=== PATIENT | female | born 1950 | race Caucasian/White ===

== ENCOUNTER 2024-03-22 19:27 | Inpatient (IN) ==
[2024-03-22] MEDS ORDERED: Magnesium Hydroxide LIQ 30 ML UDC PO PRN (21:33)
[2024-03-22] MEDS ORDERED: Polyethylene Glycol 3350 17 GM PACKET PO PRN (21:33)
[2024-03-22] MEDS ORDERED: Albuterol HFA INHALER 8 gm MDI INH PRN (21:55)
[2024-03-22] MEDS: cefTRIAXone 1 gm/50 mL D5W 1 GM/50 ML BAG IV SCH (22:26)
[2024-03-22] MEDS: Enoxaparin 40 MG/0.4 ML SYR SUBCUT SCH (22:27)
[2024-03-22] MEDS: Albuterol/Ipratropium NEB.SOL (2.5/0.5 MG) 3 ML NEB.SOLN INH SCH (23:13)
[2024-03-22] MEDS: DOXYcycline 100 MG in NS 0.9% 250 ml 250 ML IVPB SCH (23:26)
[2024-03-22] MEDS ORDERED: Bacitracin OINTMENT TUBE ONE (23:41)
[2024-03-23] MEDS: Mometasone/Formoter 200/5 MDI INH SCH (07:37)
[2024-03-23 08:11] LABS: ABS Lymphocytes 0.6 10^3/uL (1.0-4.8); ABS Monocytes 0.3 10^3/uL (0.0-0.9); ABS Neutrophils 7.5 10^3/uL (1.5-7.6); Hematocrit 35.9 % (35-45); Hemoglobin 12.1 g/dL (11.5-14.3); Lymphocyte % 6.6 %; Mean Corpuscular Hemoglobin 30.8 pg (27-33); Mean Corpuscular Hgb Conc 33.6 g/dL (31-36); Mean Corpuscular Volume 91.6 fL (80-97); Mean Platelet Volume 8.3 fL (7.5-11.2); Platelet Count 289 10^3/uL (150-450); Red Blood Count 3.92 10^6/uL (3.63-4.92); Red Cell Distribution Width 14.5 % (12-17); White Blood Count 8.4 10^3/uL (3.8-11.8)
[2024-03-23 08:45] LABS: Calcium 8.3 mg/dL (8.6-10.3); Creatinine, Serum 0.67 mg/dL (0.51-0.95); Potassium 4.1 mmol/L (3.5-5.0); eGFR CKD-EPI 91.1 (>60)
[2024-03-23] MEDS: Furosemide 20 mg/2 ml IV VIAL IV SLOW PU ONE ×2 (11:02→16:51)
[2024-03-23] MEDS: Cefepime 1 GM in Dextrose 1 GM/50 ML BAG IV SCH (14:12)
[2024-03-23] MEDS: metroNIDAZOLE IV 500 MG/100ML 500 MG/100 ML BAG IVPB SCH ×2 (14:42→22:00)
[2024-03-23 15:41] LABS: High Sensitivity Troponin 1 Hr 247 pg/mL (<15)
[2024-03-23] MEDS: Metoprolol Tartrate 5 mg VIAL 5 ml VIAL (1 mg/ml) IV SCH (16:55)
[2024-03-24] MEDS: DOXYcycline 100 MG in NS 0.9% 250 ml 250 ML IVPB SCH (00:07)
[2024-03-24] MEDS: Cefepime 1 GM in Dextrose 1 GM/50 ML BAG IV SCH (01:25)
[2024-03-24 06:30] LABS: ABS Lymphocytes 1.2 10^3/uL (1.0-4.8); ABS Monocytes 0.9 10^3/uL (0.0-0.9); ABS Neutrophils 7.2 10^3/uL (1.5-7.6); Eosinophil % 0.2 %; Hematocrit 32.1 % (35-45); Mean Corpuscular Hemoglobin 31.1 pg (27-33); Mean Corpuscular Hgb Conc 34.2 g/dL (31-36); Mean Corpuscular Volume 90.9 fL (80-97); Mean Platelet Volume 7.7 fL (7.5-11.2); Platelet Count 325 10^3/uL (150-450); Red Blood Count 3.53 10^6/uL (3.63-4.92); Red Cell Distribution Width 14.3 % (12-17); White Blood Count 9.3 10^3/uL (3.8-11.8)
[2024-03-24 07:25] LABS: Calcium 7.6 mg/dL (8.6-10.3); Creatinine, Serum 0.79 mg/dL (0.51-0.95); Magnesium 2.1 mg/dL (1.9-2.7); Potassium 3.6 mmol/L (3.5-5.0)
[2024-03-24] MEDS ORDERED: Sulfur Hexaflouride MICROSPHR 25 MG VIAL ONE (12:11)
[2024-03-24] MEDS: Sulfur Hexaflouride MICROSPHR 25 MG VIAL IV ONE (12:44)
[2024-03-24] MEDS ORDERED: Lorazepam PYXIS KEY PRN (23:34)
[2024-03-25] MEDS: diazePAM INJ CARPUJECT 5 MG/ML SYRINGE IV ONE ×2 (00:01→23:02)
[2024-03-25] MEDS: LORazepam 2 mg VIAL 1 ml IV PUSH ONE (00:19)
[2024-03-25 05:26] LABS: Hematocrit 33.3 % (35-45); Hemoglobin 11.4 g/dL (11.5-14.3); Mean Corpuscular Hgb Conc 34.2 g/dL (31-36); Mean Corpuscular Volume 90.7 fL (80-97); Mean Platelet Volume 7.7 fL (7.5-11.2); Platelet Count 326 10^3/uL (150-450); Red Blood Count 3.67 10^6/uL (3.63-4.92); White Blood Count 9.1 10^3/uL (3.8-11.8)
[2024-03-25 05:44] LABS: Calcium 7.3 mg/dL (8.6-10.3); Creatinine, Serum 0.66 mg/dL (0.51-0.95); Magnesium 1.9 mg/dL (1.9-2.7); eGFR CKD-EPI 91.4 (>60)
[2024-03-25 06:01] LABS: ABS Eosinophils 0.1 10^3/uL (0.0-0.5); ABS Lymphocytes 1.2 10^3/uL (1.0-4.8); ABS Monocytes 0.8 10^3/uL (0.0-0.9); ABS Nucleated RBC 0.01 10^3/ul; Eosinophil % 0.6 %; Lymphocyte % 13.7 %; Nucleated Red Blood Cells % 0.1 %/100WBC (0.0-0.8)
[2024-03-25 06:02] LABS: RBC Morphology Normal (Normal)
[2024-03-25] MEDS: Enoxaparin 60 MG/0.6 ML SYR SUBCUT SCH (07:26)
[2024-03-25 07:47] LABS: Ferritin 102.3 ng/mL (11-307)
[2024-03-25] MEDS: KCL 20 MEQ/100 ML IVPREMIX 20 MEQ/100 ML BAG IV SCH ×2 (08:18→23:14)
[2024-03-25] MEDS: Pantoprazole VIAL 40 MG VIAL IV SCH (11:14)
[2024-03-25] MEDS: Furosemide 20 mg/2 ml IV VIAL IV SLOW PU ONE (11:14)
[2024-03-25] MEDS: Ferric Gluconate IV 250 MG in NS 0.9% 250 ml 200 ML IVPB SCH (11:24)
[2024-03-25] MEDS: OLANZAPINE 10 MG IM ONE (12:28)
[2024-03-25] MEDS ORDERED: Levalbuterol 1.25MG/0.5ML NEB.SOL ONE (15:18)
[2024-03-25] MEDS ORDERED: Albuterol/Ipratropium NEB.SOL (2.5/0.5 MG) 3 ML NEB.SOLN ONE (15:22)
[2024-03-25] MEDS: Albuterol/Ipratropium NEB.SOL (2.5/0.5 MG) 3 ML NEB.SOLN INH PRN (15:23)
[2024-03-25] MEDS ORDERED: Propofol 10 MG/ML 20 ML BTL ONE (16:02)
[2024-03-25] MEDS: Levalbuterol 1.25 mg/3 mL (NF) 1.25 MG/3 ML NEB.SOLN INH ONE (16:31)
[2024-03-25] MEDS: Albuterol 2.5mg/3 ml (0.083%) NEB.SOLN INH ONE (16:31)
[2024-03-25] MEDS: CEFEPIME 2 GM in Dextrose 50 mL IV SCH ×2 (18:04→18:22)
[2024-03-25] MEDS: metroNIDAZOLE IV 500 MG/100ML 500 MG/100 ML BAG IVPB SCH (20:08)
[2024-03-26 06:07] LABS: Hematocrit 33.6 % (35-45); Hemoglobin 11.3 g/dL (11.5-14.3); Mean Corpuscular Hemoglobin 30.6 pg (27-33); Mean Corpuscular Hgb Conc 33.6 g/dL (31-36); Mean Corpuscular Volume 91.2 fL (80-97); Mean Platelet Volume 7.3 fL (7.5-11.2); Platelet Count 397 10^3/uL (150-450); Red Blood Count 3.68 10^6/uL (3.63-4.92); Red Cell Distribution Width 14.4 % (12-17); White Blood Count 11.1 10^3/uL (3.8-11.8)
[2024-03-26 06:22] LABS: Calcium 7.2 mg/dL (8.6-10.3); Creatinine, Serum 0.67 mg/dL (0.51-0.95); Magnesium 1.8 mg/dL (1.9-2.7); Potassium 5.2 mmol/L (3.5-5.0); eGFR CKD-EPI 91.1 (>60)
[2024-03-26 07:07] LABS: ABS Eosinophils 0.5 10^3/uL (0.0-0.5); ABS Lymphocytes 1.3 10^3/uL (1.0-4.8); ABS Monocytes 0.9 10^3/uL (0.0-0.9); ABS Neutrophils 8.3 10^3/uL (1.5-7.6); ABS Nucleated RBC 0.01 10^3/ul; Eosinophil % 4.9 %; Lymphocyte % 11.4 %; RBC Morphology Normal (Normal)
[2024-03-26] MEDS ORDERED: Heparin 5000 UNITS/ML 1 mL VIAL IV SCH (15:00)
[2024-03-26 15:16] LABS: Hematocrit 37.4 % (35-45); Hemoglobin 12.1 g/dL (11.5-14.3); Mean Corpuscular Hemoglobin 29.4 pg (27-33); Mean Corpuscular Hgb Conc 32.2 g/dL (31-36); Mean Corpuscular Volume 91.2 fL (80-97); Mean Platelet Volume 7.2 fL (7.5-11.2); Platelet Count 407 10^3/uL (150-450); Red Cell Distribution Width 14.5 % (12-17); White Blood Count 12.1 10^3/uL (3.8-11.8)
[2024-03-26 15:28] LABS: ABS Eosinophils 0.5 10^3/uL (0.0-0.5); ABS Lymphocytes 1.4 10^3/uL (1.0-4.8); ABS Monocytes 0.9 10^3/uL (0.0-0.9); ABS Neutrophils 9.3 10^3/uL (1.5-7.6); ABS Nucleated RBC 0.01 10^3/ul; Eosinophil % 4.4 %; Lymphocyte % 11.2 %; Nucleated Red Blood Cells % 0.1 %/100WBC (0.0-0.8)
[2024-03-26 16:02] LABS: Creatinine, Serum 0.61 mg/dL (0.51-0.95); eGFR CKD-EPI 93.2 (>60)
[2024-03-26] MEDS: Heparin DRIP 25,000 UNITS BAG 25,000 UNITS/250 ML BAG IV SCH (17:46)
[2024-03-27 06:54] LABS: Creatinine, Serum 0.66 mg/dL (0.51-0.95); Magnesium 1.8 mg/dL (1.9-2.7); Potassium 3.7 mmol/L (3.5-5.0); eGFR CKD-EPI 91.4 (>60)
[2024-03-27 07:20] LABS: ABS Basophils 0.1 10^3/uL (0.0-0.1); ABS Eosinophils 0.7 10^3/uL (0.0-0.5); ABS Lymphocytes 1.5 10^3/uL (1.0-4.8); ABS Monocytes 1.1 10^3/uL (0.0-0.9); ABS Neutrophils 10.4 10^3/uL (1.5-7.6); ABS Nucleated RBC 0.05 10^3/ul; Eosinophil % 5.1 %; Hematocrit 35.5 % (35-45); Hemoglobin 12.1 g/dL (11.5-14.3); Lymphocyte % 10.7 %; Mean Corpuscular Hemoglobin 30.9 pg (27-33); Mean Corpuscular Hgb Conc 34.1 g/dL (31-36); Mean Corpuscular Volume 90.6 fL (80-97); Mean Platelet Volume 7.6 fL (7.5-11.2); Nucleated Red Blood Cells % 0.4 %/100WBC (0.0-0.8); Platelet Count 431 10^3/uL (150-450); Red Blood Count 3.92 10^6/uL (3.63-4.92); Red Cell Distribution Width 14.5 % (12-17); White Blood Count 13.2 10^3/uL (3.8-11.8)
[2024-03-27 08:33] LABS: RBC Morphology Normal (Normal)
[2024-03-27] MEDS: Potassium Chlor 10 meq TAB PO ONE (09:49)
[2024-03-27] MEDS: Lactated Ringers 1000 ml BAG 1,000 ML IV ONE (14:35)
[2024-03-27] MEDS: NS 0.9% 500 ml BAG 500 ML IV ONE (15:10)
[2024-03-27 15:24] LABS: Hemoglobin 13.4 g/dL (11.5-14.3); Mean Corpuscular Hemoglobin 29.6 pg (27-33); Mean Corpuscular Hgb Conc 32.6 g/dL (31-36); Mean Corpuscular Volume 90.6 fL (80-97); Platelet Count 436 10^3/uL (150-450); Red Blood Count 4.52 10^6/uL (3.63-4.92); Red Cell Distribution Width 14.7 % (12-17)
[2024-03-27] MEDS: Ondansetron 4 mg VIAL 2 MG/ML 2 ml VIAL IV ONE (15:24)
[2024-03-27] MEDS ORDERED: Vancomycin per Pharmacy 1 EA NOTE FOLLOW UP PRN (16:10)
[2024-03-27 16:19] LABS: C Reactive Protein 86.54 mg/L (<8.01)
[2024-03-27 16:22] LABS: ABS Eosinophils 0.6 10^3/uL (0.0-0.5); ABS Lymphocytes 1.6 10^3/uL (1.0-4.8); ABS Monocytes 0.9 10^3/uL (0.0-0.9); ABS Neutrophils 12.9 10^3/uL (1.5-7.6); ABS Nucleated RBC 0.03 10^3/ul; Eosinophil % 3.9 %; Nucleated Red Blood Cells % 0.2 %/100WBC (0.0-0.8); RBC Morphology Normal (Normal)
[2024-03-27] MEDS: Vancomycin 1,000 MG in NS 0.9% 250 ml 250 ML IVPB ONE (16:49)
[2024-03-27] MEDS ORDERED: Heparin 5000 UNITS/ML 1 mL VIAL IV SCH (17:00)
[2024-03-27 18:01] LABS: Hematocrit 39.8 % (35-45); Hemoglobin 12.8 g/dL (11.5-14.3); Mean Corpuscular Hemoglobin 29.3 pg (27-33); Mean Corpuscular Hgb Conc 32.2 g/dL (31-36); Mean Corpuscular Volume 91.1 fL (80-97); Mean Platelet Volume 7.1 fL (7.5-11.2); Platelet Count 434 10^3/uL (150-450); Red Blood Count 4.37 10^6/uL (3.63-4.92); Red Cell Distribution Width 14.3 % (12-17); White Blood Count 20.7 10^3/uL (3.8-11.8)
[2024-03-27 18:34] LABS: Creatinine, Serum 0.64 mg/dL (0.51-0.95); eGFR CKD-EPI 92.1 (>60)
[2024-03-27] MEDS: Heparin DRIP 25,000 UNITS BAG 25,000 UNITS/250 ML BAG IV SCH (19:00)
[2024-03-27 19:39] LABS: ABS Eosinophils 0.3 10^3/uL (0.0-0.5); ABS Lymphocytes 1.1 10^3/uL (1.0-4.8); ABS Monocytes 1.8 10^3/uL (0.0-0.9); ABS Neutrophils 17.5 10^3/uL (1.5-7.6); ABS Nucleated RBC 0.02 10^3/ul; Eosinophil % 1.4 %; Lymphocyte % 5.5 %; Nucleated Red Blood Cells % 0.1 %/100WBC (0.0-0.8)
[2024-03-27 22:01] LABS: Urine Appearance Turbid; Urine Bilirubin Negative (Negative); Urine Blood Negative (Negative); Urine Color Yellow; Urine Glucose Negative (Negative); Urine Ketones 1+ (Negative); Urine Nitrite Negative (Negative); Urine Protein Trace (Negative); Urine Specific Gravity 1.013 (1.002-1.030); Urine Urobilinogen Negative (Negative)
[2024-03-27] MEDS: guaiFENesin 100 mg/5 ml LIQ unit dose cup PO PRN (22:14)
[2024-03-27] MEDS: metroNIDAZOLE IV 500 MG/100ML 500 MG/100 ML BAG IVPB SCH (22:15)
[2024-03-27] MEDS: Magnesium Sulfate 2 gm BAG 2 GM/50 ML BAG IVPB ONE (23:31)
[2024-03-28 04:18] LABS: Hematocrit 31.5 % (35-45); Hemoglobin 10.7 g/dL (11.5-14.3); Mean Corpuscular Hemoglobin 30.5 pg (27-33); Mean Corpuscular Volume 89.8 fL (80-97); Mean Platelet Volume 7.2 fL (7.5-11.2); Platelet Count 374 10^3/uL (150-450); Red Blood Count 3.51 10^6/uL (3.63-4.92); Red Cell Distribution Width 14.5 % (12-17); White Blood Count 14.6 10^3/uL (3.8-11.8)
[2024-03-28 04:52] LABS: Calcium 6.8 mg/dL (8.6-10.3); Creatinine, Serum 0.73 mg/dL (0.51-0.95); Magnesium 2.5 mg/dL (1.9-2.7); Potassium 2.9 mmol/L (3.5-5.0); eGFR CKD-EPI 85.7 (>60)
[2024-03-28 05:52] LABS: ABS Basophils 0.1 10^3/uL (0.0-0.1); ABS Eosinophils 0.4 10^3/uL (0.0-0.5); ABS Lymphocytes 1.5 10^3/uL (1.0-4.8); ABS Monocytes 1.3 10^3/uL (0.0-0.9); ABS Neutrophils 11.4 10^3/uL (1.5-7.6); ABS Nucleated RBC 0.02 10^3/ul; Eosinophil % 2.7 %; Lymphocyte % 10.4 %; Nucleated Red Blood Cells % 0.1 %/100WBC (0.0-0.8)
[2024-03-28] MEDS: KCL 20 MEQ/100 ML IVPREMIX 20 MEQ/100 ML BAG IV SCH (06:01)
[2024-03-28] MEDS: Potassium Chloride LIQUID 20 MEQ/15 ML LIQUID PO SCH (06:32)
[2024-03-28] MEDS: Vancomycin 750 MG in NS 0.9% 250 ML IVPB SCH (08:32)
[2024-03-28 10:44] LABS: Calcium 6.6 mg/dL (8.6-10.3); Creatinine, Serum 0.73 mg/dL (0.51-0.95); eGFR CKD-EPI 85.7 (>60)
[2024-03-28] MEDS ORDERED: VERAPAMIL 2.5 MG/ML 2 ML VIAL ** 5 mg/2 ml ONE (13:21)
[2024-03-28] MEDS ORDERED: Heparin 1,000 UNIT/ML 10 ml (10,000 UNITS) CATHLAB/DIALYSIS ONE (13:21)
[2024-03-28] MEDS ORDERED: Iohexol 350 (CONTRAST) 100 ML PAK IV ONE (13:22)
[2024-03-28] MEDS ORDERED: Heparin 2 UNITS/ML 1000 mls 2,000 ML IV ONE (13:22)
[2024-03-28] MEDS ORDERED: Lidocaine 1% MPF 5 ML VIAL ONE (13:22)
[2024-03-28] MEDS ORDERED: nitroGLYCERIN DRIP 25,000 MCG/250 ML BTL ONE (13:22)
[2024-03-28] MEDS ORDERED: Midazolam 5 mg/5 ml VIAL 1 mg/ml 5 ml VIAL (5 mg) ONE (13:23)
[2024-03-28] MEDS ORDERED: fentaNYL 100 mcg/2 ml 50 MCG/ML VIAL ONE (13:23)
[2024-03-28] MEDS: NS 0.9% 1000 ml BAG 1,000 ML IV SCH (17:26)
[2024-03-28] MEDS: cefTRIAXone 1 gm/50 mL D5W 1 GM/50 ML BAG IV SCH (18:45)
[2024-03-28] MEDS: Azithromycin 500 mg/250 ml NS 500 MG/250 ML BAG IVPB SCH (18:56)
[2024-03-28] MEDS: Naloxone Nasal Spray 4 MG/0.1 ML NASAL.SPR INTRANASAL ONE ×2 (22:43→23:39)
[2024-03-29] MEDS ORDERED: Vancomycin Trough Check NOTE FOLLOW UP ONE (05:30)
[2024-03-29 05:50] LABS: Hematocrit 30.3 % (35-45); Hemoglobin 10.3 g/dL (11.5-14.3); Mean Corpuscular Hemoglobin 30.7 pg (27-33); Mean Corpuscular Volume 90.4 fL (80-97); Mean Platelet Volume 7.3 fL (7.5-11.2); Platelet Count 348 10^3/uL (150-450); Red Blood Count 3.35 10^6/uL (3.63-4.92); Red Cell Distribution Width 14.9 % (12-17)
[2024-03-29 06:27] LABS: Calcium 7.3 mg/dL (8.6-10.3); Creatinine, Serum 0.65 mg/dL (0.51-0.95); Magnesium 2.5 mg/dL (1.9-2.7); Potassium 3.6 mmol/L (3.5-5.0); eGFR CKD-EPI 91.8 (>60)
[2024-03-29 07:16] LABS: ABS Basophils 0.1 10^3/uL (0.0-0.1); ABS Eosinophils 0.3 10^3/uL (0.0-0.5); ABS Lymphocytes 1.1 10^3/uL (1.0-4.8); ABS Monocytes 1.3 10^3/uL (0.0-0.9); ABS Neutrophils 12.2 10^3/uL (1.5-7.6); ABS Nucleated RBC 0.01 10^3/ul; Eosinophil % 2.1 %; Lymphocyte % 7.3 %; Nucleated Red Blood Cells % 0.1 %/100WBC (0.0-0.8)
[2024-03-29 09:53] LABS: C Reactive Protein 65.99 mg/L (<8.01)
[2024-03-29] MEDS: Potassium Chlor 20 meq TAB.ER PO ONE (10:23)
[2024-03-29] MEDS: Iohexol 350 (CONTRAST) 500 ML MDV IV ONE (11:11)
[2024-03-29] MEDS: Enoxaparin 40 MG/0.4 ML SYR SUBCUT SCH (13:57)
[2024-03-30] MEDS: guaiFENesin/CODIENE 100mg/10mg 5 ML UDC PO PRN (06:02)
[2024-03-30 07:56] LABS: ABS Basophils 0.2 10^3/uL (0.0-0.1); ABS Eosinophils 0.3 10^3/uL (0.0-0.5); ABS Neutrophils 9.4 10^3/uL (1.5-7.6); ABS Nucleated RBC 0.01 10^3/ul; Eosinophil % 2.5 %; Hematocrit 31.3 % (35-45); Hemoglobin 10.7 g/dL (11.5-14.3); Lymphocyte % 8.8 %; Mean Corpuscular Hemoglobin 31.2 pg (27-33); Mean Corpuscular Hgb Conc 34.1 g/dL (31-36); Mean Corpuscular Volume 91.3 fL (80-97); Mean Platelet Volume 7.1 fL (7.5-11.2); Nucleated Red Blood Cells % 0.1 %/100WBC (0.0-0.8); Platelet Count 341 10^3/uL (150-450); Red Blood Count 3.42 10^6/uL (3.63-4.92); Red Cell Distribution Width 15.2 % (12-17)
[2024-03-30 08:35] LABS: Calcium 7.6 mg/dL (8.6-10.3); Creatinine, Serum 0.57 mg/dL (0.51-0.95); Magnesium 2.2 mg/dL (1.9-2.7); Potassium 3.9 mmol/L (3.5-5.0); eGFR CKD-EPI 94.7 (>60)
[2024-03-31] MEDS: Pantoprazole VIAL 40 MG VIAL IV ONE (02:03)
[2024-03-31 02:04] LABS: Hematocrit 33.4 % (35-45); Hemoglobin 10.7 g/dL (11.5-14.3)
[2024-03-31 05:46] LABS: Hematocrit 29.4 % (35-45); Hemoglobin 9.8 g/dL (11.5-14.3); Mean Corpuscular Hemoglobin 30.4 pg (27-33); Mean Corpuscular Hgb Conc 33.4 g/dL (31-36); Mean Corpuscular Volume 91.1 fL (80-97); Mean Platelet Volume 7.4 fL (7.5-11.2); Platelet Count 333 10^3/uL (150-450); Red Blood Count 3.23 10^6/uL (3.63-4.92); Red Cell Distribution Width 14.9 % (12-17)
[2024-03-31 06:22] LABS: ABS Basophils 0.1 10^3/uL (0.0-0.1); ABS Eosinophils 0.2 10^3/uL (0.0-0.5); ABS Lymphocytes 1.2 10^3/uL (1.0-4.8); ABS Monocytes 0.9 10^3/uL (0.0-0.9); ABS Neutrophils 9.7 10^3/uL (1.5-7.6); ABS Nucleated RBC 0.02 10^3/ul; Eosinophil % 1.3 %; Lymphocyte % 10.2 %; Nucleated Red Blood Cells % 0.1 %/100WBC (0.0-0.8)
[2024-03-31 06:30] LABS: Calcium 7.7 mg/dL (8.6-10.3); Creatinine, Serum 0.51 mg/dL (0.51-0.95); Potassium 3.7 mmol/L (3.5-5.0); eGFR CKD-EPI 97.3 (>60)
[2024-03-31] MEDS: Lactated Ringers 1000 ml BAG 250 ML IV ONE (11:16)
[2024-03-31 14:00] LABS: Hematocrit 29.3 % (35-45); Hemoglobin 9.9 g/dL (11.5-14.3); Mean Corpuscular Hemoglobin 30.7 pg (27-33); Mean Corpuscular Hgb Conc 33.6 g/dL (31-36); Mean Corpuscular Volume 91.3 fL (80-97); Mean Platelet Volume 7.6 fL (7.5-11.2); Platelet Count 326 10^3/uL (150-450); Red Blood Count 3.21 10^6/uL (3.63-4.92); Red Cell Distribution Width 14.8 % (12-17); White Blood Count 27.1 10^3/uL (3.8-11.8)
[2024-03-31 14:46] LABS: Calcium 7.7 mg/dL (8.6-10.3); Creatinine, Serum 0.54 mg/dL (0.51-0.95); Potassium 3.7 mmol/L (3.5-5.0)
[2024-03-31 14:55] LABS: ABS Basophils 0.1 10^3/uL (0.0-0.1); ABS Eosinophils 0.1 10^3/uL (0.0-0.5); ABS Lymphocytes 0.8 10^3/uL (1.0-4.8); ABS Monocytes 1.3 10^3/uL (0.0-0.9); ABS Neutrophils 24.9 10^3/uL (1.5-7.6); ABS Nucleated RBC 0.01 10^3/ul; Eosinophil % 0.2 %; Lymphocyte % 2.9 %; RBC Morphology Normal (Normal)
[2024-03-31 15:44] LABS: C Reactive Protein 32.28 mg/L (<8.01)
[2024-03-31 22:04] LABS: Hematocrit 28.6 % (35-45); Hemoglobin 9.6 g/dL (11.5-14.3); Mean Corpuscular Hemoglobin 30.6 pg (27-33); Mean Corpuscular Hgb Conc 33.4 g/dL (31-36); Mean Corpuscular Volume 91.7 fL (80-97); Mean Platelet Volume 7.3 fL (7.5-11.2); Platelet Count 303 10^3/uL (150-450); Red Blood Count 3.12 10^6/uL (3.63-4.92); Red Cell Distribution Width 14.7 % (12-17); White Blood Count 26.4 10^3/uL (3.8-11.8)
[2024-03-31 22:22] LABS: ABS Lymphocytes 1.1 10^3/uL (1.0-4.8); ABS Monocytes 1.4 10^3/uL (0.0-0.9); ABS Neutrophils 23.8 10^3/uL (1.5-7.6); ABS Nucleated RBC 0.01 10^3/ul; Eosinophil % 0.1 %; Lymphocyte % 4.3 %
[2024-04-01 05:47] LABS: ABS Basophils 0.1 10^3/uL (0.0-0.1); ABS Eosinophils 0.1 10^3/uL (0.0-0.5); ABS Lymphocytes 1.3 10^3/uL (1.0-4.8); ABS Monocytes 1.1 10^3/uL (0.0-0.9); ABS Neutrophils 19.8 10^3/uL (1.5-7.6); ABS Nucleated RBC 0.02 10^3/ul; Eosinophil % 0.2 %; Hematocrit 28.9 % (35-45); Hemoglobin 9.5 g/dL (11.5-14.3); Lymphocyte % 5.6 %; Mean Corpuscular Hemoglobin 30.3 pg (27-33); Mean Corpuscular Hgb Conc 33.1 g/dL (31-36); Mean Corpuscular Volume 91.7 fL (80-97); Mean Platelet Volume 7.5 fL (7.5-11.2); Nucleated Red Blood Cells % 0.1 %/100WBC (0.0-0.8); Platelet Count 304 10^3/uL (150-450); Red Blood Count 3.15 10^6/uL (3.63-4.92); Red Cell Distribution Width 14.9 % (12-17); White Blood Count 22.3 10^3/uL (3.8-11.8)
[2024-04-01 06:05] LABS: Calcium 7.5 mg/dL (8.6-10.3); Creatinine, Serum 0.57 mg/dL (0.51-0.95); eGFR CKD-EPI 94.7 (>60)
[2024-04-01] MEDS ORDERED: Zosyn per Pharmacy NOTE FOLLOW UP SCH (11:00)
[2024-04-01] MEDS: ZOSYN 3.375 GM x ONE DOSE over 30 miuntes IV (12:14)
[2024-04-01] MEDS: ZOSYN 3.375 GM Q8H per EXTENDED INFUSION IV SCH (16:40)
[2024-04-02 06:32] LABS: ABS Basophils 0.1 10^3/uL (0.0-0.1); ABS Eosinophils 0.1 10^3/uL (0.0-0.5); ABS Lymphocytes 1.1 10^3/uL (1.0-4.8); ABS Monocytes 1.2 10^3/uL (0.0-0.9); ABS Neutrophils 10.1 10^3/uL (1.5-7.6); Eosinophil % 1.2 %; Hematocrit 26.1 % (35-45); Hemoglobin 8.8 g/dL (11.5-14.3); Lymphocyte % 8.9 %; Mean Corpuscular Hemoglobin 31.3 pg (27-33); Mean Corpuscular Hgb Conc 33.7 g/dL (31-36); Mean Corpuscular Volume 92.8 fL (80-97); Mean Platelet Volume 7.8 fL (7.5-11.2); Platelet Count 276 10^3/uL (150-450); Red Blood Count 2.81 10^6/uL (3.63-4.92); Red Cell Distribution Width 14.8 % (12-17); White Blood Count 12.7 10^3/uL (3.8-11.8)
[2024-04-02 06:49] LABS: Calcium 7.6 mg/dL (8.6-10.3); Creatinine, Serum 0.58 mg/dL (0.51-0.95); Potassium 3.4 mmol/L (3.5-5.0); eGFR CKD-EPI 94.3 (>60)
[2024-04-02 09:57] LABS: Magnesium 2.2 mg/dL (1.9-2.7)
[2024-04-02] MEDS: Potassium Chlor 20 meq TAB.ER PO SCH (10:19)
[2024-04-02] MEDS: Potassium Chlor 20 meq TAB.ER PO ONE (18:37)
[2024-04-03 06:45] LABS: ABS Eosinophils 0.1 10^3/uL (0.0-0.5); ABS Lymphocytes 1.1 10^3/uL (1.0-4.8); ABS Neutrophils 10.3 10^3/uL (1.5-7.6); ABS Nucleated RBC 0.02 10^3/ul; Eosinophil % 0.7 %; Hematocrit 26.9 % (35-45); Hemoglobin 8.9 g/dL (11.5-14.3); Lymphocyte % 8.5 %; Mean Corpuscular Hemoglobin 30.7 pg (27-33); Mean Corpuscular Hgb Conc 32.9 g/dL (31-36); Mean Corpuscular Volume 93.1 fL (80-97); Mean Platelet Volume 8.3 fL (7.5-11.2); Nucleated Red Blood Cells % 0.1 %/100WBC (0.0-0.8); Platelet Count 309 10^3/uL (150-450); Red Blood Count 2.89 10^6/uL (3.63-4.92); Red Cell Distribution Width 15.3 % (12-17); White Blood Count 12.5 10^3/uL (3.8-11.8)
[2024-04-03 07:02] LABS: Calcium 7.9 mg/dL (8.6-10.3); Creatinine, Serum 0.62 mg/dL (0.51-0.95); Potassium 4.5 mmol/L (3.5-5.0); eGFR CKD-EPI 92.8 (>60)
[2024-04-03 10:15] VITALS: BP 95/65
== END 2024-04-03 14:03 | DRG 871 ==
LOC: ED 19:27 → EDHOLD 20:28 → SUATTDRO 20:28 → MED 03-23 16:36 → MEDTELE 03-27 19:26
PROVIDERS: ADMIT Internal Medicine; ATTEND Hospitalist
PROC: O.GIEGD (2024-03-25 13:35)

== ENCOUNTER 2024-04-04 09:33 | Inpatient (IN) ==
[2024-04-04 10:11] LABS: Hematocrit 29.6 % (35-45); Hemoglobin 9.6 g/dL (11.5-14.3); Mean Corpuscular Hemoglobin 30.8 pg (27-33); Mean Corpuscular Hgb Conc 32.6 g/dL (31-36); Mean Corpuscular Volume 94.6 fL (80-97); Mean Platelet Volume 8.2 fL (7.5-11.2); Platelet Count 408 10^3/uL (150-450); Red Blood Count 3.13 10^6/uL (3.63-4.92); Red Cell Distribution Width 15.5 % (12-17); White Blood Count 10.1 10^3/uL (3.8-11.8)
[2024-04-04] MEDS: Lactated Ringers SEPSIS* BAG 1,430 ML IV ONE (10:21)
[2024-04-04 10:23] LABS: Activated Partial Thrombo Time 20.7 seconds (26.0-38.0); INR 1.13 (0.83-1.13)
[2024-04-04 10:35] LABS: High Sens Troponin Baseline 122 pg/mL (<15)
[2024-04-04 10:53] LABS: ABS Basophils 0.1 10^3/uL (0.0-0.1); ABS Lymphocytes 0.6 10^3/uL (1.0-4.8); ABS Monocytes 0.8 10^3/uL (0.0-0.9); ABS Neutrophils 8.6 10^3/uL (1.5-7.6); ABS Nucleated RBC 0.01 10^3/ul; Anisocytosis 1+; Eosinophil % 0.4 %; Lymphocyte % 5.8 %; Nucleated Red Blood Cells % 0.1 %/100WBC (0.0-0.8); Polychromasia 1+
[2024-04-04 11:05] LABS: ALT 23 U/L (7-52); Albumin 2.8 g/dL (3.2-5.2); Albumin/Globulin Ratio 1.1 (1-3); Alkaline Phosphatase 123 U/L (35-149); Anion Gap 8 mmol/L (2-16); Blood Urea Nitrogen 9 mg/dL (6-24); CO2 Carbon Dioxide 26 mmol/L (22-32); Calcium 7.8 mg/dL (8.6-10.3); Chloride 106 mmol/L (101-111); Creatinine, Serum 0.55 mg/dL (0.51-0.95); Globulin 2.6 g/dL (2-4); Glucose 167 mg/dL (70-100); Sodium 140 mmol/L (135-145); Total Bilirubin 0.3 mg/dL (0.2-1.0); Total Protein 5.4 g/dL (6.4-8.9); eGFR CKD-EPI 95.5 (>60)
[2024-04-04 12:00] LABS: High Sensitivity Troponin 1 Hr 59 pg/mL (<15)
[2024-04-04] MEDS ORDERED: Ondansetron 4 mg VIAL 2 MG/ML 2 ml VIAL IV PRN (12:05)
[2024-04-04] MEDS ORDERED: Polyethylene Glycol 3350 17 GM PACKET PO PRN (12:05)
[2024-04-04] MEDS ORDERED: Senna TAB 8.6 mg TAB PO PRN (12:05)
[2024-04-04] MEDS: cefTRIAXone 1 gm/50 mL D5W 1 GM/50 ML BAG IV ONE (12:36)
[2024-04-04] MEDS: DOXYcycline 100 MG in NS 0.9% 250 ml 250 ML IVPB ONE (12:36)
[2024-04-04] MEDS ORDERED: Albuterol HFA INHALER 8 gm MDI INH PRN (12:50)
[2024-04-04 13:23] LABS: Potassium Redraw 4.1 mmol/L (3.5-5.0)
[2024-04-04] MEDS: Enoxaparin 40 MG/0.4 ML SYR SUBCUT SCH (16:41)
[2024-04-05 10:53] LABS: ABS Basophils 0.1 10^3/uL (0.0-0.1); ABS Eosinophils 0.1 10^3/uL (0.0-0.5); ABS Lymphocytes 0.8 10^3/uL (1.0-4.8); ABS Neutrophils 7.1 10^3/uL (1.5-7.6); ABS Nucleated RBC 0.01 10^3/ul; Eosinophil % 1.1 %; Hematocrit 30.3 % (35-45); Mean Corpuscular Hemoglobin 31.1 pg (27-33); Mean Corpuscular Hgb Conc 32.9 g/dL (31-36); Mean Corpuscular Volume 94.6 fL (80-97); Mean Platelet Volume 7.7 fL (7.5-11.2); Nucleated Red Blood Cells % 0.1 %/100WBC (0.0-0.8); Platelet Count 478 10^3/uL (150-450); Red Blood Count 3.21 10^6/uL (3.63-4.92); Red Cell Distribution Width 15.7 % (12-17); White Blood Count 9.2 10^3/uL (3.8-11.8)
[2024-04-05 11:28] LABS: Calcium 8.2 mg/dL (8.6-10.3); Creatinine, Serum 0.68 mg/dL (0.51-0.95); Magnesium 2.1 mg/dL (1.9-2.7); Potassium 4.8 mmol/L (3.5-5.0); eGFR CKD-EPI 90.8 (>60)
[2024-04-05] MEDS: Furosemide 20 mg/2 ml IV VIAL IV ONE (16:13)
[2024-04-05] MEDS: Albuterol/Ipratropium NEB.SOL (2.5/0.5 MG) 3 ML NEB.SOLN INH PRN (22:51)
[2024-04-06] MEDS: Furosemide 20 mg/2 ml IV VIAL IV SLOW PU ONE (03:00)
[2024-04-06 07:47] LABS: ABS Lymphocytes 0.8 10^3/uL (1.0-4.8); ABS Monocytes 0.9 10^3/uL (0.0-0.9); ABS Neutrophils 6.4 10^3/uL (1.5-7.6); ABS Nucleated RBC 0.02 10^3/ul; Eosinophil % 0.6 %; Hematocrit 29.9 % (35-45); Mean Corpuscular Hemoglobin 31.2 pg (27-33); Mean Corpuscular Hgb Conc 33.3 g/dL (31-36); Mean Corpuscular Volume 93.6 fL (80-97); Mean Platelet Volume 7.8 fL (7.5-11.2); Nucleated Red Blood Cells % 0.2 %/100WBC (0.0-0.8); Platelet Count 496 10^3/uL (150-450); Red Cell Distribution Width 15.2 % (12-17); White Blood Count 8.2 10^3/uL (3.8-11.8)
[2024-04-06 08:01] LABS: Calcium 8.7 mg/dL (8.6-10.3); Creatinine, Serum 0.62 mg/dL (0.51-0.95); Potassium 4.3 mmol/L (3.5-5.0); eGFR CKD-EPI 92.8 (>60)
[2024-04-07 22:03] LABS: High Sensitivity Troponin 1 Hr 48 pg/mL (<15)
[2024-04-08 06:03] LABS: Hematocrit 31.9 % (35-45); Hemoglobin 10.6 g/dL (11.5-14.3); Mean Corpuscular Hemoglobin 31.9 pg (27-33); Mean Corpuscular Hgb Conc 33.2 g/dL (31-36); Mean Platelet Volume 7.8 fL (7.5-11.2); Platelet Count 482 10^3/uL (150-450); Red Blood Count 3.33 10^6/uL (3.63-4.92); Red Cell Distribution Width 16.2 % (12-17); White Blood Count 5.9 10^3/uL (3.8-11.8)
[2024-04-08 06:19] LABS: Calcium 8.4 mg/dL (8.6-10.3); Creatinine, Serum 0.61 mg/dL (0.51-0.95); Potassium 4.8 mmol/L (3.5-5.0); eGFR CKD-EPI 93.2 (>60)
[2024-04-08 06:33] LABS: ABS Eosinophils 0.2 10^3/uL (0.0-0.5); ABS Lymphocytes 1.6 10^3/uL (1.0-4.8); ABS Monocytes 0.7 10^3/uL (0.0-0.9); ABS Neutrophils 3.3 10^3/uL (1.5-7.6); ABS Nucleated RBC 0.01 10^3/ul; Eosinophil % 4.2 %; Lymphocyte % 26.5 %; Nucleated Red Blood Cells % 0.2 %/100WBC (0.0-0.8); RBC Morphology Normal (Normal)
[2024-04-08] MEDS ORDERED: Polyethylene Glycol 3350 17 GM PACKET PO SCH (09:00)
[2024-04-08 09:10] VITALS: BP 123/84
== END 2024-04-08 11:35 | DRG 177 ==
LOC: EDHOLD 09:33 → ED 09:33 → MED 15:07
PROVIDERS: ADMIT Student in an Organized Health Care Education/Training Program; ATTEND Student in an Organized Health Care Education/Training Program